=== PATIENT | female | born 1965 | race Caucasian/White ===

== ENCOUNTER 2016-11-10 17:49 | Emergency (ER) | payer SELFPAY ==
[2017-05-20] MEDS ORDERED: ZANAFLEX 4 MG TA4 MG PO (01:03)
[2017-05-20] MEDS ORDERED: NEURONTIN800 MG PO (01:05)
[2017-05-20] MEDS ORDERED: VIIBRYD40 MG PO (01:05)
[2017-05-20] MEDS ORDERED: VISTARIL 25 MG25 MG PO (01:07)
[2017-05-20] MEDS ORDERED: LISINOPRIL5 MG PO (01:13)
[2017-05-20] MEDS ORDERED: ELAVIL 25 MG TA25 MG PO (01:19)
[2017-05-20] MEDS ORDERED: AZITHROMYCIN250 MG PO (01:20)
[2017-05-20] MEDS ORDERED: ESTRACE0.5 MG PO (01:21)
[2017-05-20] MEDS ORDERED: CITALOPRAM HBR20 MG PO (01:22)
[2017-05-20] MEDS ORDERED: RISPERDAL2 MG PO (01:27)
== END 2016-11-10 18:12 | disposition home or self-care (01) ==
LOC: ER1 17:49
DX: S60.454A Superficial foreign body of right ring finger, initial encounter (principal); E11.9 Type 2 diabetes mellitus without complications; Z88.0 Allergy status to penicillin; Z88.6 Allergy status to analgesic agent; W49.04XA Ring or other jewelry causing external constriction, initial encounter
CPT/HCPCS: 99283

== ENCOUNTER 2021-04-17 22:34 | Emergency (ER) | payer OTHER ==
[~2021-04-17 22:34] MED LIST: AIMOVIG AU140 MG/1 M SQ; ANORO ELLIPTA1 EACH INH; AZITHROMYCIN250 MG PO; CELEBREX200 MG PO; CITALOPRAM HBR20 MG PO; CLEOCIN HCL300 MG PO; ELAVIL 25 MG TA25 MG PO; ESTRACE0.5 MG PO; IBUPROFEN600 MG PO; LEVAQUIN500 MG PO; LISINOPRIL5 MG PO; MACROBID 100 M100 MG PO; NAPROSYN500 MG PO; NEURONTIN800 MG PO; NOVOLOG MI100 UNIT/2 SQ; PROAIR DIGIHAL90 MCG INH; RISPERDAL2 MG PO; SINGULAIR10 MG PO; SYMBICORT 80-41 INHA INH; TOPAMAX50 MG PO; VENTOLIN HFA 66.7 GM INH; VIIBRYD40 MG PO; VISTARIL 25 MG25 MG PO; VRAYLAR3 MG PO; WELLBUTRIN SR150 M1 PO; ZANAFLEX 4 MG TA4 MG PO; ZOFRAN4 MG PO
== END 2021-04-18 00:20 | disposition left against medical advice (07) ==
LOC: ER1 22:34
DX: Z53.21 Procedure and treatment not carried out due to patient leaving prior to being seen by health care provider (principal)

== ENCOUNTER 2021-07-26 15:53 | Emergency (ER) | payer OTHER ==
[~2021-07-26] VITALS: Ht 160 cm; Wt 78.0 kg
[2021-07-26] MEDS ORDERED: PROAIR HFA8.5 GM INH (19:01)
== END 2021-07-26 20:08 | disposition home or self-care (01) ==
LOC: ER1 15:53
DX: U07.1 COVID-19 (principal); J40 Bronchitis, not specified as acute or chronic; Z23 Encounter for immunization; F17.200 Nicotine dependence, unspecified, uncomplicated; Z87.09 Personal history of other diseases of the respiratory system; E78.5 Hyperlipidemia, unspecified; E11.40 Type 2 diabetes mellitus with diabetic neuropathy, unspecified; Z88.0 Allergy status to penicillin; Z90.49 Acquired absence of other specified parts of digestive tract
CPT/HCPCS: 96374; 99283; J2405; M0243

== ENCOUNTER 2021-12-11 08:55 | Emergency (ER) | payer MEDICARE ==
[~2021-12-11 08:55] MED LIST changes: +PROAIR HFA8.5 GM INH
== END 2021-12-11 12:11 | disposition left against medical advice (07) ==
LOC: ER1 08:55
DX: S91.312A Laceration without foreign body, left foot, initial encounter (principal); S91.311A Laceration without foreign body, right foot, initial encounter; S20.02XA Contusion of left breast, initial encounter; S05.12XA Contusion of eyeball and orbital tissues, left eye, initial encounter; S09.90XA Unspecified injury of head, initial encounter; J45.909 Unspecified asthma, uncomplicated; E78.5 Hyperlipidemia, unspecified; F17.200 Nicotine dependence, unspecified, uncomplicated; Z88.0 Allergy status to penicillin; Y04.0XXA Assault by unarmed brawl or fight, initial encounter; Y92.009 Unspecified place in unspecified non-institutional (private) residence as the place of occurrence of the external cause
CPT/HCPCS: 70450; 70486; 71045; 72125; 73630; 94664; 94760; 99283